=== PATIENT | female | born 1975 | race Caucasian/White ===

== ENCOUNTER 2020-07-27 18:18 | Emergency (ER) | payer OTHER ==
[~2020-07-27 18:18] MED LIST: BACLOFEN 10MG T10 MG PO; NAPROXEN500 MG PO
[2020-07-27] MEDS ORDERED: ROBAXIN500 MG PO (20:23)
== END 2020-07-27 20:44 | disposition home or self-care (01) ==
LOC: FER 18:18
DX: S76.011A Strain of muscle, fascia and tendon of right hip, initial encounter (principal); M54.41 Lumbago with sciatica, right side; Z88.5 Allergy status to narcotic agent; X58.XXXA Exposure to other specified factors, initial encounter; Y92.000 Kitchen of unspecified non-institutional (private) residence as the place of occurrence of the external cause
CPT/HCPCS: 73502

== ENCOUNTER → 2021-07-01 | Day surgery (SDC) | payer OTHER ==
[~2021-07-01] VITALS: Ht 165.1 cm; Wt 88.5 kg
[~2021-07-01] MED LIST changes: +MELOXICAM15 MG PO; +NEURONTIN300 MG PO; +ROBAXIN500 MG PO; +TIROSINT125 MCG PO
== END | disposition home or self-care (01) ==
LOC: FAS 12:04
DX: Z12.11 Encounter for screening for malignant neoplasm of colon (principal); K52.9 Noninfective gastroenteritis and colitis, unspecified; K64.8 Other hemorrhoids; K64.4 Residual hemorrhoidal skin tags; K57.30 Diverticulosis of large intestine without perforation or abscess without bleeding; K59.00 Constipation, unspecified; M17.10 Unilateral primary osteoarthritis, unspecified knee; Z88.5 Allergy status to narcotic agent
CPT/HCPCS: J2250; J2704; J7120